=== PATIENT | female | born 1980 | race Caucasian/White ===

== ENCOUNTER 2023-06-27 09:25 | Outpatient (CLI) | payer BC ==
[2023-06-27] MEDS ORDERED: Magnevist 469MG/ML 20 ML VIAL ONE (10:31)
== END 2023-06-27 09:26 | disposition home or self-care (01) ==
LOC: CSHMRI 09:25
PROVIDERS: ATTEND Psychiatry & Neurology Neurology
DX: G37.9 Demyelinating disease of central nervous system, unspecified (principal); M50.30 Other cervical disc degeneration, unspecified cervical region
CPT/HCPCS: 72156; A9579